=== PATIENT | female | born 1950 | race Caucasian/White ===

== ENCOUNTER 2023-10-12 14:14 | Emergency (ER) | payer OTHER, SELFPAY ==
[2023-10-12 14:15] VITALS: BP 145/86; PULSE 111; RESP 18; TEMP 36.7; O2SAT 96; BMI 35.4
[2023-10-12 15:00] VITALS: BP 131/80; PULSE 68; O2SAT 98
--- NOTE | 2023-10-12 15:19 | CT_ITS ---
PROCEDURE INFORMATION: Exam: CT Abdomen And Pelvis With Contrast Exam date and time: 10/12/2023 4:15 PM Age: 73 years old Clinical indication: Abdominal pain; Localized; Right; Prior surgery; Surgery date: 6+ months; Surgery type: Hysterectomy; Additional info: R sahil abdominal pain TECHNIQUE: Imaging protocol: Computed tomography of the abdomen and pelvis with contrast. Radiation optimization: All CT scans at this facility use at least one of these dose optimization techniques: automated exposure control; mA and/or kV adjustment per patient size (includes targeted exams where dose is matched to clinical indication); or iterative reconstruction. Contrast material: ISOVUE; Contrast volume: 75 ml; Contrast route: IV; COMPARISON: No relevant prior studies available. FINDINGS: Lungs: Scattered areas of bronchial wall thickening which are likely chronic inflammatory. A few areas of subpleural reticulation are noted, nonspecific. There is a 6 mm nodule of the peripheral left lower lobe (image 15 series 3) as well as a 6 mm nodule at the medial right lower lobe (image 20 series 3). For patients at low risk (minimal or absent history of smoking and of other known risk factors), no routine follow-up is indicated. For patients at high risk (history of smoking or of other known risk factors), consider optional CT Chest at 12 months. (Reference: Miki). Liver: There is early morphologic changes of cirrhosis with volume redistribution. No concerning focal liver lesion. There is possible hepatic steatosis, evaluation is limited secondary to contrast enhancement. Gallbladder and bile ducts: Normal. Pancreas: There is fatty replacement of the pancreas. Spleen: Normal. Adrenal glands: The adrenal glands appear normal. Kidneys and ureters: There are no soft tissue renal masses or hydronephrosis. Stomach and bowel: There are scattered colonic diverticula without evidence for active diverticulitis. Appendix: No evidence of appendicitis. Intraperitoneal space: There is stranding and entrapment of fat/omentum within the hernia defect. Vasculature: There is atherosclerotic disease of the visualized aorta and its major branch vessels. Lymph nodes: No lymphadenopathy. Urinary bladder: Unremarkable as visualized. Reproductive: The patient has undergone prior hysterectomy. Bones/joints: There is diffuse degenerative disease of the visualized osseous structures. Soft tissues: There is a right lower quadrant fascial defect with intact overlying musculature (image 78 series 3 and image 54 series 1002). IMPRESSION: 1. Incomplete right lower quadrant spigelian hernia containing inflamed fat/omentum. 2. There is a 6 mm nodule of the peripheral left lower lobe (image 15 series 3) as well as a 6 mm nodule at the medial right lower lobe (image 20 series 3). For patients at low risk (minimal or absent history of smoking and of other known risk factors), no routine follow-up is indicated. For patients at high risk (history of smoking or of other known risk factors), consider optional CT Chest at 12 months. (Reference: Miki). REFERENCES: Miki Keith, et al. Guidelines for Management of Incidental Pulmonary Nodules Detected on CT Images: From the Fleischner Society 2017. Radiology. 2017;284(1):228-243.
--- NOTE | 2023-10-12 15:21 | ED_ITS ---
Discharge Plan Disposition Patient Disposition: Home, Self-Care Referrals Follow up/Referrals: Lashonda Goldman [Primary Care Provider] - See instructions Fito Llanos MD [Staff Physician] - See instructions Activity Restrictions/Add. Instructions Additional Instructions/Restrictions: At this time it was felt you are safe to be discharged home. If new or worsening symptoms please do not hesitate to return the emergency department. Please call and schedule an appointment with Dr. Guidry as soon as you are able. It was also found that you have a small spot on your lung, most of these are benign however it is recommended that you follow-up with your family doctor on an outpatient basis for continued surveillance. Please take Tylenol and ibuprofen every 6 hours for pain as needed. Clinical Impressions Clinical Impression: Spigelian hernia, Lung nodule Instructions Patient Instructions: DI for Acute Abdominal Pain Discharge ED Provider: Nadira Yen General Adult HPI General Chief complaint: Abdominal Pain Stated complaint: right side pain Time Seen by Provider: 10/12/23 15:00 Mode of Arrival: Ambulatory Source of Information: Patient Limitations: No Limitations Description of Symptoms (Recalled from ER Triage Doc. by RN): Patient reports right lower abdomen pain that started Tuesday. Denies N/V/D. States the pain is worse when she stands or moves around. History of Present Illness HPI narrative: Patient is a 73-year-old female past medical history of hypertension and hyperlipidemia who presents emergency department for evaluation of abdominal pain. Onset was acute, occurring Tuesday evening, right hemiabdominal, initially started in the right lower quadrant and has migrated to her right periumbilical area. No vomiting or diarrhea. She does feel bladder pressure however no dysuria. No other acute complaints at this time. Related Data Allergies Allergy/AdvReac Type Severity Reaction Status Date / Time No Known Allergies Allergy Verified 10/12/23 14:28 [facility] Disclaimer: The information contained in this section may have been updated after the p atient was seen, as this information can be updated by other users. Social History Smoking Status: Never smoker alcohol intake: never current occupational status: other Travel in the last 8 weeks: None ROS Obtained: Yes Systems reviewed as appropriate & no additional complaints except as documented Physical Exam General General appearance: alert and in no apparent distress Head Head exam: atraumatic and normocephalic Eye Eye exam: Present PERRL ENT ENT exam: Present mucous membranes moist Neck Neck exam: Present normal inspection Chest Chest inspection: Present normal inspection and symmetric chest wall rise Respiratory Respiratory exam: Present normal lung sounds bilaterally; Absent respiratory distress Cardiovascular Cardiovascular exam: Present normal rhythm and tachycardia Abdominal Exam Abdominal exam: Present soft and tenderness (Right hemiabdomen, mild); Absent guarding or rebound Extremities Exam Extremities exam: Present normal inspection Neurological Exam Neurological exam: Present alert and oriented X3 Psychiatric Psychiatric exam: Present normal affect Skin Skin exam: Present warm and dry Medical Decision Making Jose Inquiry Pt receiving controlled substance: No Vital Signs: 10/12/23 14:15 10/12/23 15:00 10/12/23 17:00 Temperature 98.0 F Temperature Source Oral Pulse Rate 68 68 Pulse Rate [Radial] 111 H Respiratory Rate 18 Blood Pressure 131/80 139/81 Blood Pressure [Right Arm] 145/86 H Blood Pressure Mean [Right Arm] 105 Blood Pressure Source Blood Pressure Source [Right Arm] Automatic Cuff Blood Pressure Position Blood Pressure Position [Right Arm] Sitting 02 Sat by Pulse Oximetry 96 98 97 Oxygen Delivery Method Room Air Room Air Room Air 10/12/23 18:00 10/12/23 18:24 Temperature 98.0 F Temperature Source Oral Pulse Rate 63 63 Pulse Rate [Radial] Respiratory Rate 18 Blood Pressure 146/81 H 146/81 H Blood Pressure [Right Arm] Blood Pressure Mean [Right Arm] Blood Pressure Source Automatic Cuff Blood Pressure Source [Right Arm] Blood Pressure Position Sitting Blood Pressure Position [Right Arm] 02 Sat by Pulse Oximetry 93 L Oxygen Delivery Method Room Air Room Air Lab Data Lab Results 10/12/23 14:20: Urine Color Yellow, Urine Appearance Clear, Urine pH 6.0, Ur Specific [place] 1.025, Urine Protein Negative, Urine Glucose (UA) Negative, Urine Ketones Negative, Urine Blood Negative, Urine Nitrate Negative, Urine Bilirubin Negative, Urine Urobilinogen 0.2, Ur Leukocyte Esterase Negative, Urine RBC Occasional, Urine WBC Occasional, Ur Squamous Epith Cells Occasional, Urine Bacteria Trace 10/12/23 15:29: WBC 8.0, RBC 4.44, Hgb 13.9, Hct 42.6, MCV 96.0, MCH 31.4 H, MCHC 32.7, RDW 13.2, Plt Count 249, MPV 6.9 L, Neut % (Auto) 65.5, Lymph % (Auto) 22.8, Trigg % (Auto) 9.6 H, Eos % (Auto) 1.6, Baso % (Auto) 0.5, Neut # (Auto) 5.2, Lymph # (Auto) 1.8, Trigg # (Auto) 0.8, Eos # (Auto) 0.1, Baso # (Auto) 0.0, Sodium 138, Potassium 4.2, Chloride 105, Carbon Dioxide 28, Anion Gap 9.2, BUN 23 H, Creatinine 1.10 H, Estimated Creat Clear 64, Estimated GFR 49 L, Est GFR ( Amer) 59, Glucose 139 H, Calcium 9.4, Total Bilirubin 0.5, AST 31, ALT 31, Alkaline Phosphatase 105, Total Protein 7.8, Albumin 4.1, Globulin 3.7 H, Albumin/Globulin Ratio 1.1, Lipase 55, SARS-CoV-2 (PCR) Not detected, Influenza A Untype (PCR) Not detected, Influenza Type B (PCR) Not detected 10/12/23 15:29 10/12/23 15:29 Orders (Tests/Meds): ED MEDICATIONS Discontinued Medications Generic Name Dose Route Start Last Admin Trade Name Freq PRN Reason Stop Dose Admin Acetaminophen 1,000 mg 10/12/23 15:19 10/12/23 16:32 Acetaminophen 1,000mg/100ml Vial IV 10/12/23 15:20 1,000 mg ONCE ONE Administration Lactated Ringer's 1,000 mls @ 999 mls/hr 10/12/23 15:19 10/12/23 16:31 Lactated Ringer's 1000 Ml Bag IV 10/12/23 16:19 999 mls/hr .Q1H1M ONE Administration Iopamidol 75 ml 10/12/23 16:28 10/12/23 16:30 Iopamidol-370 (76%);100ml Bottle IV 10/12/23 16:29 75 ml ONCE ONE Administration Morphine Sulfate 4 mg 10/12/23 15:20 10/12/23 16:31 Morphine 4mg/Ml Syringe IV 10/12/23 15:21 4 mg ONCE ONE Administration Ondansetron HCl 4 mg 10/12/23 15:19 10/12/23 16:31 Ondansetron 4mg/2ml Vial IV 10/12/23 15:20 4 mg ONCE ONE Administration Sodium Chloride 10 ml 10/12/23 16:28 10/12/23 16:30 Sodium Chloride 0.9% 10ml Syr (Rad Only) IV 11/11/23 16:27 10 ml NEEDED PRN Administration Maintain IV Site ORDERS Category Date Time Status CT abdomen pelvis w con Stat Cat Scan 10/12/23 15:19 Completed CBC w/Auto Diff [Complete Blood Count Auto Diff] Stat Lab 10/12/23 15:29 Completed CMP [Comprehensive Metabolic Panel] Stat Lab 10/12/23 15:29 Completed Lipase Stat Lab 10/12/23 15:29 Completed Rapid PCR Covid and Flu A/B Stat Lab 10/12/23 15:29 Completed UA [Urinalysis and Microscopic] Stat Lab 10/12/23 14:20 Completed Medical Decision Narrative: In summary patient is 73-year-old female past medical history described above who presents emergency department for evaluation of abdominal pain. Patient is hemodynamically stable nontoxic-appearing upon arrival, afebrile. Differential diagnosis includes appendicitis, cholecystitis, ureterolithiasis, urinary tract infection, among others. Workup will be conducted with hematologic labs, urinalysis, CT abdomen pelvis with IV contrast. Initial inventions include crystalloid bolus, IV Tylenol, morphine, Zofran. Workup reviewed by me, hematologic labs are nonactionable, viral swab negative urinalysis interpreted by me and not consistent with infection. CT imaging shows incomplete right lower quadrant spigelian hernia containing inflamed fat and omentum, 6 mm incidental left lower lobe nodule. The case was discussed with surgery, there is no acute intervention at this time and patient is appropriate for outpatient clinic evaluation. Patient will follow-up in surgical clinic. Critical Care Critical Care Time Critical Care Time: No
[2023-10-12 15:25] LABS: Microscopic, Urine URINE MICROSCOPIC (MICROSCOPIC)
[2023-10-12 15:33] LABS: Appearance,Urine CLEAR (Clear); Bilirubin,Urine Negative (Negative); Blood, Urine Negative (Negative); Color,Urine YELLOW (Yellow); Glucose,Urine (UA) Negative (Negative); Ketones,Urine Negative (Negative); Leukocyte Esterase,Urine Negative (Negative); Nitrate,Urine Negative (Negative); Protein,Urine Negative (Negative); Specific Gravity, Urine 1.025 (1.005-1.030); Urobilinogen,Urine 0.2 EU/dl (0.2)
[2023-10-12 15:35] LABS: Coronavirus 19, PCR Not Detected (NotDetected); Influenza A, PCR Not Detected (NotDetected); Influenza B, PCR Not Detected (NotDetected)
[2023-10-12 15:38] LABS: Basophils % 0.5 % (0.1-2.0); Eosinophils # 0.1 K/mm3 (0.0-0.4); Eosinophils % 1.6 % (0.1-12.0); Hematocrit 42.6 % (37.0-47.0); Hemoglobin 13.9 g/dL (12.2-16.2); Lymphocytes # 1.8 K/mm3 (0.7-4.5); Lymphocytes % 22.8 % (10-50); Mean Corpuscular HGB Conc 32.7 g/dL (31.8-35.4); Mean Corpuscular Hemoglobin 31.4 pg (27.0-31.2); Mean Platelet Volume 6.9 fl (7.4-10.4); Monocytes # 0.8 K/mm3 (0.1-1.0); Monocytes % 9.6 % (1.7-9.3); Neutrophils # 5.2 K/mm3 (1.8-7.8); Neutrophils % 65.5 % (37.0-80.0); Platelet Count 249 K/mm3 (142-424); Red Blood Count 4.44 M/mm3 (4.20-5.40); Red Cell Distribution Width 13.2 % (11.5-17.5)
[2023-10-12 15:43] LABS: Chloride 105 mmol/L (98-107)
[2023-10-12 15:44] LABS: Potassium 4.2 mmoL/L (3.5-5.1); Sodium 138 mmol/L (136-145)
[2023-10-12 15:46] LABS: Alanine Aminotransferase 31 U/L (12-78); Anion Gap 9.2 mEq/L (5-15); Aspartate Amino Transferase 31 U/L (14-36); Blood Urea Nitrogen 23 mg/dl (7-17); Carbon Dioxide 28 mmol/L (22.0-30.0); Creatinine Clearance Estimated 64 mL/min (50-200); Estimated Glomerular Filt Rate 49 ml/min (>60); GFR (African American) 59 ML/MIN (>60)
[2023-10-12 15:47] LABS: Albumin Level 4.1 g/dl (3.5-5.0); Albumin/Globulin Ratio 1.1 (1.1-1.8); Alkaline Phosphatase 105 U/L (38-126); Bilirubin,Total 0.5 mg/dl (0.2-1.3); Calcium 9.4 mg/dl (8.4-10.2); Globulin 3.7 g/dL (1.3-3.2); Glucose 139 mg/dl (74-100); Lipase 55 U/L (23-300); Total Protein,Serum 7.8 g/dl (6.3-8.2)
[2023-10-12 16:01] LABS: Bacteria,Urine Trace /lpf; RBC,Urine Occasional #/hpf (0-3); Squamous Epithelial Cell,Urine Occasional #/hpf (0-5); WBC,Urine Occasional #/hpf (0-3)
--- NOTE | 2023-10-12 16:06 | PC.NURSE ---
PT TO CT
[2023-10-12] MEDS: IOPAMIDOL-370 (76%);100ML BOTTLE 75 ML IV (16:30)
[2023-10-12] MEDS: SODIUM CHLORIDE 0.9% 10ML SYR (RAD ONLY) 10 ML IV (16:30)
[2023-10-12] MEDS: LACTATED RINGERS 1000ML 1,000 ML 999 ML IV (16:31)
[2023-10-12] MEDS: MORPHINE 4MG/ML SYRINGE 4 MG IV (16:31)
[2023-10-12] MEDS: ONDANSETRON 4MG/2ML VIAL 4 MG IV (16:31)
[2023-10-12] MEDS: ACETAMINOPHEN 1,000MG/100ML VIAL 1000 MG IV (16:32)
[2023-10-12 17:00] VITALS: BP 139/81; PULSE 68; O2SAT 97
[2023-10-12 18:00] VITALS: BP 146/81; PULSE 63; O2SAT 93
[2023-10-12 18:24] VITALS: BP 146/81; PULSE 63; RESP 18; TEMP 36.7; O2SAT 93
== END 2023-10-12 18:26 | disposition home or self-care (01) ==
PROVIDERS: Emergency Medicine; Emergency Provider Emergency Medicine; PCP Family Medicine
DX: R10.31 Right lower quadrant pain (principal); R10.33 Periumbilical pain; K43.6 Other and unspecified ventral hernia with obstruction, without gangrene; I10 Essential (primary) hypertension; E78.5 Hyperlipidemia, unspecified
CPT/HCPCS: 74177; 80053; 81001; 83690; 85025; 87636; 96361; 96374; 96375; 99285; J0131; J2405; Q9967

== ENCOUNTER 2024-12-13 10:52 | Emergency (ER) | payer OTHER, SELFPAY ==
[2024-12-13 10:59] VITALS: BP 190/79; PULSE 81; O2SAT 97
[2024-12-13 11:00] VITALS: BP 190/79; PULSE 61; RESP 16; TEMP 36.6; O2SAT 96; BMI 33.6
--- NOTE | 2024-12-13 11:07 | PC.NURSE ---
pt more comfortable sitting in a wheelchair where she can rest her arms for pain relief
--- NOTE | 2024-12-13 11:08 | XR_ITS ---
FINAL REPORT CLINICAL HISTORY: fall COMPARISON: None FINDINGS: Oblique and lateral views of the right elbow were obtained. An AP view was not obtained. There is no prior exam for comparison. There is no acute fracture or dislocation. Joint space is preserved. There is no joint effusion or other soft tissue abnormality. IMPRESSION: Somewhat limited exam without an AP view, no definite fracture or effusion is identified. Reviewed, Interpreted and Dictated by Trudi Marks MD Transcribed by Vanessa Castillo Authenticated and . [facility]
--- NOTE | 2024-12-13 11:08 | XR_ITS ---
FINAL REPORT TECHNIQUE: Left humerus 2 views CLINICAL HISTORY: fall COMPARISON: None FINDINGS: LEFT HUMERUS: Two images of the left humerus were obtained. There is a displaced humeral neck fracture with medial displacement of the distal fragment. The distal humerus is intact. The joint spaces are intact. There is no soft tissue abnormality identified. IMPRESSION: Displaced humeral neck fracture with medial displacement of the distal fragment. Reviewed, Interpreted and Dictated by Trudi Marks MD Transcribed by Vanessa Castillo Authenticated and [facility]
--- NOTE | 2024-12-13 11:10 | XR_ITS ---
FINAL REPORT CLINICAL HISTORY: fall COMPARISON: None FINDINGS: 2 views of the left shoulder were obtained. There is a comminuted humeral head and neck fracture, involving the greater tuberosity. There is mild medial displacement of the distal fracture fragment. Degenerative joint disease is present. No dislocation is identified. Soft tissues are unremarkable. IMPRESSION: Comminuted humeral head and neck fracture as described. Reviewed, Interpreted and Dictated by Trudi Marks MD Transcribed by Vanessa Castillo Authenticated and . [facility]
[2024-12-13 11:27] VITALS: BP 172/92; PULSE 58; O2SAT 98
[2024-12-13] MEDS: OXYCODONE 5MG IMMEDIATE RELEASE TABLET 5 MG PO (11:27)
[2024-12-13] MEDS: ACETAMINOPHEN 500MG TAB 1000 MG PO (11:27)
[2024-12-13] MEDS: ONDANSETRON 4MG ODT 4 MG SL (11:27)
[2024-12-13] MEDS: KETOROLAC 30MG/ML VIAL 30 MG IM (11:32)
[2024-12-13 12:01] VITALS: BP 156/84; PULSE 59; O2SAT 96
--- NOTE | 2024-12-13 12:07 | CT_ITS ---
FINAL REPORT CLINICAL HISTORY: Left arm pain, fracture status post fall FINDINGS: CT LEFT HUMERUS WITHOUT CONTRAST TECHNIQUE: Axial and reformatted sagittal and coronal images were obtained of the left humerus. This study was performed with techniques to keep radiation doses as low as reasonably achievable, (ALARA). Individualized dose reduction techniques using automated exposure control or adjustment of mA and/or kV according to the patient's size were employed. FINDINGS: There is a comminuted fracture of the left humeral head and neck. There are more than 3 fracture fragments. There is medial displacement of the dominant distal fragment. There is involvement of the greater tuberosity. No other fracture is identified. There is no dislocation. There are degenerative changes in the acromioclavicular joint and the glenohumeral joint. There is soft tissue edema surrounding the fracture. There is a joint effusion. IMPRESSION: Culminated humeral head and neck fracture. Reviewed, Interpreted and Dictated by Trudi Marks MD Transcribed by Jazmín Mullen Authenticated and [facility]
--- NOTE | 2024-12-13 12:07 | CT_ITS ---
FINAL REPORT TECHNIQUE: Thin section axial images were obtained from skull base to vertex without contrast. Coronal reconstruction images were obtained from the axial data. Exam was performed using dose reduction techniques such as automated exposure control, adjustment of the mA and kV according to patient size, and use of iterative reconstruction technique. CLINICAL HISTORY: Headache, status post fall FINDINGS: There is no mass effect or midline shift. There is no hydrocephalus. There is no intracranial hemorrhage. There is mild periventricular hypodensity. The posterior fossa is without acute abnormality. The basilar cisterns are preserved. The soft tissues are without acute abnormality. No acute osseous abnormality is identified. IMPRESSION: No acute intracranial abnormality. Periventricular hypodensity is favored to represent chronic small vessel ischemia. Reviewed, Interpreted and Dictated by Trudi Marks MD Transcribed by Jazmín Mullen Authenticated and . [facility]
--- NOTE | 2024-12-13 12:07 | CT_ITS ---
FINAL REPORT TECHNIQUE: Thin section axial images were obtained through the cervical spine without contrast. Multiplanar reconstruction images were obtained from the axial data. Exam was performed using dose reduction techniques. CLINICAL HISTORY: Neck pain status post fall FINDINGS: There is no acute fracture or acute malalignment of the cervical spine. There is no evidence of unilateral or bilateral facet lock. The craniocervical unction is intact. Vertebral body height is preserved. There is anterolisthesis of C4 on C5 and C6 on C7 which is likely degenerative. Multilevel degenerative disc disease is most prominent at C5-6 and C6-7. No acute paraspinal abnormality is identified. IMPRESSION: No acute osseous abnormality of the cervical spine. Degenerative disc disease. Reviewed, Interpreted and Dictated by Trudi Marks MD Transcribed by Jazmín Mullen Authenticated and [facility]
--- NOTE | 2024-12-13 12:42 | HMH.EDGENADL ---
Discharge Plan Disposition Patient Disposition: Home, Self-Care Condition: Good Prescriptions Prescriptions: New hydrocodone-acetaminophen 5-325 mg tablet 1 tab PO Q8H PRN (Reason: pain) Qty: 12 0RF No Action lisinopril 40 mg tablet 40 mg PO DAILY Patient Comments: TAKE 1 TABLET BY MOUTH EVERY DAY bisoprolol-hydrochlorothiazide 10-6.25 mg tablet 1 tab PO DAILY Patient Comments: TAKE 1 TABLET BY MOUTH EVERY DAY pravastatin 40 mg tablet 40 mg PO DAILY Patient Comments: TAKE 1 TABLET BY MOUTH EVERY DAY IN THE EVENING amlodipine 10 mg tablet 10 mg PO DAILY Patient Comments: TAKE 1 TABLET BY MOUTH DAILY Referrals Follow up/Referrals: Lamberto Mayberry DO [Staff Physician] - See instructions Lashonda Goldman [Primary Care Provider] - See instructions Activity Restrictions/Add. Instructions Additional Instructions/Restrictions: You were evaluated in the emergency department today and diagnosed with a fracture of your proximal humerus of your left arm. Please nut picker your prescription for [place] and take as needed for severe pain. Try to get by with taking Tylenol and ibuprofen, but this will be there if you need it for pain not controlled by these medications. Use caution when taking tylenol with the norco, as norco contains acetaminophen. Do not exceed 4,000mg of acetaminophen in one day. Do not drive or operate heavy machinery while taking [place]. Use caution, as it can be sedating and also addicting. Also can cause constipation. Keep your cuff and collar in place to help alleviate pain and support your left upper extremity. Follow up December 17, 2024 at 1:30pm with Dr. Mayberry. Return to the emergency department for new or worsening symptoms. Clinical Impressions Clinical Impression: Fall Fracture of proximal end of humerus Qualifiers: Encounter type: initial encounter Instructions Patient Instructions: DI for Humeral Fracture Print Language Print Language: Syriac Discharge ED Provider: Nadira Yen General Adult HPI General Chief complaint: Fall Stated complaint: [id number] hrs- fall, Pain in L shoulder, face Time Seen by Provider: 12/13/24 11:23 Mode of Arrival: Ambulatory Source of Information: Patient Description of Symptoms (Recalled from ER Triage Doc. by RN): Patient reports tripping on a rug at [facility] in [place] and falling on her left shoulder and left side of her face. Denies LOC or blood thinner use. Small scratch noted to left eyebrow. History of Present Illness HPI narrative: This patient is a 74-year-old female who has a history of hypertension and hyperlipidemia presenting to the emergency department for evaluation with concern for left shoulder pain after mechanical ground-level fall. She notes that she tripped over a rug at [email or web address] and fell landing on her left shoulder and the left side of her face. She did not lose consciousness. No use of anticoagulation. She has a small abrasion to her left eyebrow and significant pain of her left shoulder with that limits range of motion, but otherwise denies any focal pain or traumatic injuries. No numbness, tingling, or other concerns. She was well prior to the fall. Related Data Home Medications ?Medication ?Instructions ?Recorded ?Confirmed amlodipine 10 mg tablet 10 mg PO DAILY 10/14/23 12/13/24 bisoprolol 10 1 tab PO DAILY 10/14/23 12/13/24 mg-hydrochlorothiazide 6.25 mg tablet lisinopril 40 mg tablet 40 mg PO DAILY 10/14/23 12/13/24 pravastatin 40 mg tablet 40 mg PO DAILY 10/14/23 12/13/24 Previous Rx's ?Medication ?Instructions ?Recorded hydrocodone 5 mg-acetaminophen 325 1 tab PO Q8H PRN pain #12 tabs 12/13/24 mg tablet Allergies Allergy/AdvReac Type Severity Reaction Status Date / Time No Known Allergies Allergy Verified 12/13/24 12:49 [facility] Disclaimer: The information contained in this section may have been updated after the patient was seen, as this information can be updated by other users. Medical History Lung nodule Spigelian hernia Surgical History History of colonoscopy Social History Smoking Status: Never smoker alcohol intake: never current occupational status: other Travel in the last 8 weeks: None Other Medical History Have you received the Pneumonia Vaccine: Yes ROS Obtained: Yes All systems reviewed & no additional complaints except as documented Physical Exam General General appearance: alert and in no apparent distress Head Head exam: normocephalic and other (Small superficial abrasion to the left eyebrow) Eye Eye exam: Present normal appearance, PERRL and EOMI ENT ENT exam: Present normal exam, normal oropharynx, mucous membranes moist and normal external ear exam Neck Neck exam: Present normal inspection, full ROM and trachea midline; Absent tenderness Chest Chest inspection: Present normal inspection and symmetric chest wall rise; Absent tenderness Respiratory Respiratory exam: Present normal lung sounds bilaterally; Absent respiratory distress, wheezes, stridor or accessory muscle use Cardiovascular Cardiovascular exam: Present regular rate and normal rhythm Abdominal Exam Abdominal exam: Present soft; Absent distention, tenderness or guarding Extremities Exam Extremities exam: Present tenderness, normal capillary refill and other (Limited range of motion and tenderness to palpation of the left proximal humerus, all compartment soft, neurovascularly intact distally with intact range of motion of all digits of the hand); Absent full ROM or edema Back Exam Back exam: Present normal inspection and full ROM; Absent tenderness Neurological Exam Neurological exam: Present alert, oriented X3, CN II-XII intact and normal gait; Absent motor sensory deficit Psychiatric Psychiatric exam: Present normal affect and normal mood Skin Skin exam: Present warm and dry Medical Decision Making Medical Records Medical records reviewed: Yes I reviewed the patient's medical records. Screening: Per USPSTF and CDC recommendations, given the prevalence of disease in our region, it is our hospital?s policy to screen for HIV and viral Hepatitis for all patients aged 18 and over and those with ongoing risk factors. Jose Inquiry Pt receiving controlled substance: Yes Jose was queried for this patient: Yes Risks and benefits of using a controlled substance: were discussed with pt by me Vital Signs: 12/13/24 10:59 12/13/24 11:00 12/13/24 11:27 Temperature 97.8 F Temperature Source Oral Pulse Rate 81 58 L Pulse Rate [Radial] 61 Respiratory Rate 16 Blood Pressure 190/79 H 172/92 H Blood Pressure [Right Arm] 190/79 H Blood Pressure Mean [Right Arm] 116 Blood Pressure Source Blood Pressure Source [Right Arm] Automatic Cuff Blood Pressure Position [Right Arm] Sitting 02 Sat by Pulse Oximetry 97 96 98 Oxygen Delivery Method Room Air Room Air Room Air 12/13/24 12:01 12/13/24 13:00 12/13/24 13:27 Temperature 98.6 F Temperature Source Oral Pulse Rate 59 L 57 L 59 L Pulse Rate [Radial] Respiratory Rate 20 Blood Pressure 156/84 H 163/78 H 163/78 H Blood Pressure [Right Arm] Blood Pressure Mean [Right Arm] Blood Pressure Source Automatic Cuff Blood Pressure Source [Right Arm] Blood Pressure Position [Right Arm] 02 Sat by Pulse Oximetry 96 95 Oxygen Delivery Method Room Air Room Air Room Air Lab Data Lab results reviewed: Yes I reviewed the patient's lab results. Orders (Tests/Meds): ED MEDICATIONS Discontinued Medications Generic Name Dose Route Start Last Admin Trade Name Grzegorz PRN Reason Stop Dose Admin Acetaminophen 1,000 mg 12/13/24 11:23 12/13/24 11:27 Acetaminophen 500mg Tab PO 12/13/24 11:24 1,000 mg ONCE ONE Administration Ketorolac Tromethamine 30 mg 12/13/24 11:23 12/13/24 11:32 Ketorolac 30mg/Ml Vial IM 12/13/24 11:24 30 mg ONCE ONE Administration Lidocaine 1 each 12/13/24 12:51 12/13/24 13:28 Lidocaine 5% Transdermal Patch TD 12/13/24 12:52 1 each ONCE ONE Administration Ondansetron HCl 4 mg 12/13/24 11:23 12/13/24 11:27 Ondansetron 4mg Odt SL 12/13/24 11:24 4 mg ONCE ONE Administration Oxycodone HCl 5 mg 12/13/24 11:24 12/13/24 11:27 Oxycodone 5mg Immediate Release Tablet PO 12/13/24 11:25 5 mg ONCE ONE Administration ORDERS Category Date Time Status CT cervical spine wo con Stat Cat Scan 12/13/24 12:[address] head/brain wo con Stat Cat Scan 12/13/24 12:[address] humerus LT wo con Stat Cat Scan 12/13/24 12:07 Completed Humerus XR left [XR humerus LT] Stat Exams 12/13/24 11:08 Completed XR elbow LT min 3V Stat Exams 12/13/24 11:08 Completed XR shoulder LT min 2V Stat Exams 12/13/24 11:10 Completed Medical Decision Narrative: In summary, this patient is a 74-year-old female presenting to the Emergency Department for evaluation of left shoulder pain after mechanical ground-level fall. Differential diagnoses considered include but are not limited to fracture, contusion, strain/sprain, facial trauma, head trauma, C-spine fracture, polytrauma. Ruling out the most morbid conditions drove assessment. It should be noted patient's history includes hypertension and hyperlipidemia which may not be at goal therapy. This complicates all aspects of care by increasing patient's risk for morbidity. I reviewed patient's past medical records and noted surgical evaluation for spigelian hernia in the past. On exam, the patient is sitting upright in no acute distress. She has tenderness to palpation of the left shoulder with limited range of motion secondary to pain. All compartments are soft, she is neurovascularly intact with good intact range of motion of all digits of her hand. No other traumatic injuries noted, but she is older than 65. Based on [facility] head CT and C-spine rules, will obtain CT head and C-spine as well as x-rays of the left upper extremity. I independently interpreted x-ray prior to the radiologist read and noted comminuted proximal humerus fracture. Please see their read for final interpretation. Given this, I also added on a CT scan of the humerus without contrast. Patient was given oral oxycodone, IM Toradol, oral Tylenol, oral Zofran for symptomatic improvement. I independently interpreted CT scans of the head, C-spine, and humerus and noted the comminuted humerus fracture but no intracranial hemorrhage, no C-spine fracture. On reassessment, the patient is sitting upright in no acute distress and states that her pain is controlled as long as she is not moving. She remains neurovascularly intact in her upper extremity and the cuff and collar for immobilization. Given this, I feel that she is appropriate for discharge with close outpatient follow-up with orthopedics. She is given prescription for Frank[place] and instructions for close follow-up with primary care and orthopedics. Strict return precautions given as well as instructions for safe use of narcotics. Critical Care Critical Care Time Critical Care Time: No
[2024-12-13 13:00] VITALS: BP 163/78; PULSE 57; O2SAT 95
[2024-12-13 13:27] VITALS: BP 163/78; PULSE 59; RESP 20; TEMP 37; O2SAT 95
[2024-12-13] MEDS: LIDOCAINE 5% TRANSDERMAL PATCH 1 EACH TD (13:28)
== END 2024-12-13 13:35 | disposition home or self-care (01) ==
PROVIDERS: Emergency Provider Emergency Medicine; PCP Family Medicine
DX: S42.202A Unspecified fracture of upper end of left humerus, initial encounter for closed fracture (principal); M25.512 Pain in left shoulder; G89.11 Acute pain due to trauma; W01.0XXA Fall on same level from slipping, tripping and stumbling without subsequent striking against object, initial encounter; Y93.89 Activity, other specified; Y92.512 Supermarket, store or market as the place of occurrence of the external cause
CPT/HCPCS: 70450; 72125; 73030; 73060; 73080; 73200; 96372; 99284; J1885; Q0162